=== PATIENT | female | born 1970 | race Two or more races ===

== ENCOUNTER 2017-08-08 23:26 | Emergency (ER) | payer MEDICAID ==
[~2017-08-08] VITALS: Ht 165.1 cm; Wt 75.7 kg
[2017-08-08 23:52] VITALS: Ht 165.1 cm; Wt 75.7 kg
[2017-08-09 00:37] LABS: BASOPHIL % 0.6 % (0-2); PLATELET COUNT 255 x10^3mcL (130-400)
[2017-08-09 00:38] LABS: UA SPECIFIC GRAVITY <=1.005 (1.005-1.035); microscopic required? YES; urine erythrocyte 1+ (NEGATIVE)
[2017-08-09 00:38] LABS: RED CELL DISTRIBUTION WIDTH 22.3 % (11.5-14.5)
[2017-08-09 00:48] LABS: CALCIUM 8.3 mg/dL (8.5-10.1); CARBON DIOXIDE 26.8 mmol/L (21-32); CHLORIDE SERUM 105 mmol/L (98-107); CREATININE SERUM 0.6 mg/dL (0.6-1.0); GFR1 > 60 mL/min; GLUCOSE SERUM 113 mg/dL (74-106); POTASSIUM SERUM 3.9 mmol/L (3.5-5.1); SODIUM SERUM 139 mmol/L (136-145)
[2017-08-09 00:50] LABS: ovalocyte/elliptocyte 1+; rbc morphology (normal/abnorm) ABNORMAL (NORMAL)
[2017-08-09 00:54] LABS: ALBUMIN 3.4 g/dL (3.4-5.0); ALKALINE PHOSPHATASE 85 U/L (46-116); AMYLASE 50 U/L (25-115); AST/SGOT 16 U/L (15-37); BILIRUBIN TOTAL 0.14 mg/dL (0.20-1.00); LIPASE 127 IU/L (73-393); TOTAL PROTEIN, SERUM 7.2 g/dL (6.4-8.2)
[2017-08-09 01:09] LABS: ALT/SGPT 16 U/L (14-59)
[2017-08-09 02:16] VITALS: BP 136/71
== END 2017-08-09 02:16 | disposition home or self-care (01) ==
LOC: ED 23:26
PROVIDERS: Emergency Medicine
DX: K59.00 Constipation, unspecified (principal)
CPT/HCPCS: 83880; J1885; J2405; J7030